=== PATIENT | female | born 1995 | race Caucasian/White ===

== ENCOUNTER 2022-04-21 05:57 | Inpatient (IN) ==
[2022-04-21] MEDS ORDERED: OXYTOCIN 30 UNITS/500 ML BAG IV PRN ×3 (07:34→16:33)
[2022-04-21] MEDS: LACTATED RINGER'S 1,000 ML IV PRN ×3 (08:05→15:41)
--- NOTE | 2022-04-21 09:08 | History & Physical Report ---
Date of Service April 21, 2022 Assessment & Plan (1) Encounter for supervision of normal intrauterine in primigravida, antepartum: Plan: Pt is a female at 38 3/7 gestation presenting to L&D for SROM.Pt has had routine OB care prior to admission. -Admit patient to L&D for supervision of labor, expect - monitoring category 1 -Rubella immune, GBS-, COVID vaccinated -COVID negative -Pitocin started for augmentation of labor -epidural prn for pain control -routine labs History of Present Illness Chief Complaint: labor check Primary Care Provider: Marleny Liz Patient is a 27-year-old female presenting to labor and delivery for supervision of labor at 38 and 3/7 weeks gestation. No reported complications of this . Patient reports experiencing a gush of fluid this morning at around 1:00 with noticeable cramping/contractions occur every 5 to 10 minutes. Reports good movement. Denies any bleeding from the vagina. Has had routine OB care through [facility]. Reports that she would like an epidural when able. Patient is COVID vaccinated with a Turkmen vaccine series as well as [employer]. Patient is GBS negative. Otherwise no additional complaints at this time. OB Labs: Blood Type B Positive 11/19/21 Antibody Screen NEGATIVE 11/19/21 Hemoglobin 11.9 g/dL (12.0-16.0) L 02/09/22 Hematocrit 34.5 % (37-47) L 02/09/22 Mean Corpuscular Volume 88.9 fL (80-100) 11/19/21 Platelet Count 232 K/uL (130-400) 11/19/21 Rubella IgG Antibody Immune (Immune) 11/19/21 Rapid Plasma Reagin Nonreactive (Nonreactive) 11/19/21 Hepatitis B Surface Antigen Neg (Neg) 11/19/21 HIV (1&2) Ab and P24 Ag, 4th Gener Neg (Neg) 11/19/21 Glucose 1 Hour 50 gm Load 123 mg/dl (70-130) 02/09/22 OB Optional Labs: Chlamydia trachomatis RNA NOT DETECTED (NOT DETECTED) 11/19/21 Neisseria gonorrhoeae RNA NOT DETECTED (NOT DETECTED) 11/19/21 Allergies Allergy/AdvReac Type Severity Reaction Status Date / Time No Known Allergies Allergy Verified 04/20/22 11:48 Home Medications Medication Instructions Recorded Confirmed Type vits,calcium 21-iron fum 1 tab PO DAILY #90 tab 03/22/22 04/21/22 Rx 14 mg iron-folic acid 400 mcg tablet ( Complete) Patient History Medical History (Updated 11/18/21 @ 13:57 by Ginger MENDOZA, MIRELLA) Abnormal Pap smear of cervix History of chicken pox PCOS (polycystic ovarian syndrome) Pilonidal abscess Surgical History (Updated 04/21/22 @ 06:12 by Katelyn Lamas RN) S/P biopsy of cervix [place] teeth removed Family History (Updated 11/18/21 @ 13:37 by Ginger MENDOZA, MIRELLA) Grandmother (Maternal) Asthma Grandfather (Maternal) Acute alcoholic hepatitis Father Hepatitis C Schizophrenia Denies family history of Ovarian cancer Prostate cancer Breast cancer Lung cancer Colorectal cancer Cancer Social History (Updated 11/18/21 @ 13:39 by Ginger MENDOZA RN) Smoking Status: Former smoker Age Started Using Tobacco: 12; Age Quit Using Tobacco: 13; Years Smoked: 1; Smoking End Date: age 12; Second Hand Exposure: No; Hx Alcohol Use: No Hx Substance Use: No Preferred Language: Turkmen Communication Ability: Effective Telecom Specialist Required: No Beliefs That Will Affect Care: None marital status: marital status details: ryan Jewell ([phone] Current Living Situation: Spouse Current Living Situation Comment: FOB. no pets. current occupational status: unemployed Other Information That Helps Us Care for You: No Feels Safe at Home: Yes Safety Concerns: Feels Safe At This Time Assistive Devices: None Review of Systems All systems reviewed & are unremarkable except as noted in HPI & below Physical Exam Constitutional: WD/WN, vitals as above Eyes: + anicteric sclerae Neck: trachea midline, no thyromegaly Respiratory: normal respiratory effort, lungs clear to auscultation Cardiovascular: RRR, no murmur, no edema Gastrointestinal (Abdomen): normal bowel sounds, soft, nontender, no hepatosplenomegaly Gravid Musculoskeletal: Head/Neck/Chest: normocephalic and head atraumatic Skin: no rashes, warm and dry Neurologic: moves all extremities Psychiatric: A+Ox3, euthymic affect Genitourinary: FHM: Category 1 Accelerations: present Decels: absent Variability: good Cervial Exam (per attending) Dilation: 1.5 Effacement: 80% Station: -1 Results & Data ([facility]) Vital Signs (Past 12 Hours) Vital Signs Temp Pulse Resp BP 04/21/22 08:29 36.8 C 20 04/21/22 06:14 36.7 C 57 L 20 104/65 04/21/22 06:09 57 L 104/65 04/21/22 06:07 36.7 C 20 Supervising Physician Co-Signing Physician Notes Resident Physician Supervision Note: I interviewed and examined the patient. Discussed with Dr. Rivera and agree with findings and plan as documented in the note. Any exceptions or clarifications are listed here: [None] Documented By: Flores Thomas MD, FACOG
[2022-04-21] MEDS ORDERED: ePHEDrine sulfate 50 MG/ML AMP ONE (10:30)
[2022-04-21] MEDS ORDERED: fentaNYL citrate 100 MCG/2 ML VIAL ONE (10:30)
[2022-04-21] MEDS ORDERED: BUPIVACAINE 0.25% 30 ML VIAL ONE (10:31)
[2022-04-21] MEDS ORDERED: fentaNYL 2MCG/ML ROPIVACAINE 1.25MG/ML 100 ML BAG EPI ONE (10:31)
[2022-04-21] MEDS ORDERED: SODIUM CHLORIDE 0.9% INJ 10 ML VIAL ONE (10:31)
[2022-04-21 10:45] LABS: Hematocrit (blood only) 34.3 % (37-47); Hemoglobin 11.8 g/dL (12.0-16.0); Mean Corpuscular Hemoglobin 30.3 pg (25-34); Mean Corpuscular Hgb Conc 34.4 g/dL (32-36); Mean Corpuscular Volume 88.2 fL (80-100); Mean Platelet Volume 12.9 fL (7.4-10.4); Platelet Count 143 K/uL (130-400); RDW Coefficient of Variation 12.2 % (11.5-14.5); Red Blood Count 3.89 M/uL (4.2-5.4)
[2022-04-21] MEDS ORDERED: fentaNYL 2MCG/ML ROPIVACAINE 1.25MG/ML 100 ML BAG EPI PRN (11:02)
[2022-04-21] MEDS ORDERED: ePHEDrine sulfate 50 MG/ML AMP IV PRN (11:02)
[2022-04-21] MEDS ORDERED: ONDANSETRON INJ 2 MG/ML 2 ML VIAL IV PRN (11:02)
[2022-04-21] MEDS ORDERED: NALOXONE HCL 0.4 MG/1 ML VIAL/CARP IV PRN (11:02)
[2022-04-21] MEDS ORDERED: NALOXONE HCL 1 MG in SODIUM CHLORIDE 0.9% 1000ML 1,000 ML IV PRN (11:02)
[2022-04-21] MEDS ORDERED: NALBUPHINE HCL INJ 10 MG/ML AMP IV PRN (11:02)
[2022-04-21] MEDS ORDERED: diphenhydrAMINE 50 MG/ML VIAL IV PRN (11:02)
--- NOTE | 2022-04-21 11:04 | Anesthesiology Consultation ---
Date of Service April 21, 2022 Assessment & Plan Chart Review Chart Review: Patient NOT seen in Pre Admission Testing and Acceptable Risk for Labor Epidural Consults Requested none ASA ASA2 Proposed Anesthesia Anesthesia Type: Labor Epidural and CSE Risk / Benefits Reviewed With: PT / POA / Parent / Guardian, Accepts Plan and Informed Consent Obtained History Height/Weight Weight: 63.957 kg Allergies Allergy/AdvReac Type Severity Reaction Status Date / Time No Known Allergies Allergy Verified 04/20/22 11:48 Medications Home Medications Medication Instructions Recorded Confirmed Last Taken vits,calcium 21-iron fum 1 tab PO DAILY #90 tab 03/22/22 04/21/22 04/21/22 01:00 14 mg iron-folic acid 400 mcg tablet ( Complete) Active Medications Generic Name Dose Route Start Last Admin Trade Name Freq PRN Reason Stop Dose Admin Oxytocin 30 units in 500 mls @ 5 mls/hr 04/21/22 07:34 04/21/22 09:30 Pitocin IV 04/23/22 07:33 0.3 units/hr .Q24H PRN 5 mls/hr Labor Induction/Augmentation Titration Protocol 0.3 UNITS/HR NPO Date Last Intake of Fluids: 04/21/22 Time Last Intake of Fluids: 10:00 Date Last Intake of Solids: 04/20/22 Time Last Intake of Solids: 20:00 Past Medical History Medical History Abnormal Pap smear of cervix History of chicken pox PCOS (polycystic ovarian syndrome) Pilonidal abscess Exercise / Class Metabolic Activity II 4-5 Yardwork/Stairs/Walk up hill Past Family History Family History Grandmother (Maternal) Asthma Grandfather (Maternal) Acute alcoholic hepatitis Father Hepatitis C Schizophrenia Denies family history of Ovarian cancer Prostate cancer Breast cancer Lung cancer Colorectal cancer Cancer Past Surgical History Surgical History S/P biopsy of cervix [place] teeth removed Past Anesthesia History No Hx of Anesthesia Complications and No Family Hx of Anesthesia Complications History of PONV No Hx of PONV and No Hx of Motion Sickness Social History Smoking Status: Former smoker Smoking End Date: age 12 Hx Alcohol Use: No Hx Substance Use: No Review of Systems no chest pain or sob Physical Exam Vital Signs Last Vital Signs Temp 36.8 C 04/21/22 08:29 Pulse 95 H 04/21/22 10:58 Resp 20 04/21/22 08:29 BP 98/57 L 04/21/22 09:27 Pulse Ox 99 04/21/22 10:58 ENMT Mouth: no TMJ abnormality Thyromental Distance: > or= 3.5 Finger Breadths Mallampati Class: II Neck normal visual inspection Respiratory normal respiratory effort Auscultation: lungs clear to auscultation bilaterally Cardiovascular Rate/Rhythm: regular rate and regular rhythm Musculoskeletal Spine: normal cervical ROM Neurologic moves all extremities Psychiatric Orientation: alert and oriented x 3 Testing Laboratory Results 04/21/22 10:12
[2022-04-21] MEDS ORDERED: BENZOCAINE 20% AER SPR 82.5 GM CAN EXT PRN (16:33)
[2022-04-21] MEDS ORDERED: oxyCODONE/ACETAMINOPHEN 5mg/325mg TAB PO PRN (16:33)
[2022-04-21] MEDS ORDERED: HYDROCORTISONE ACETATE 25 MG SUPP PR PRN (16:33)
[2022-04-21] MEDS ORDERED: bisacodyL 10 MG SUPP PR PRN (16:33)
[2022-04-21] MEDS ORDERED: DIPHTHERIA/TETANUS/PERTUSSIS 0.5 ML SYR/VIAL IM ONE (16:33)
--- NOTE | 2022-04-21 17:52 | Anesthesia Procedure Note ---
Date of Service April 21, 2022 Anesthesia Post Epidural Note Vital Signs Vital Signs: Temp Pulse Resp BP Pulse Ox 36.7 C 83 18 102/64 98 04/21/22 15:28 04/21/22 17:47 04/21/22 15:28 04/21/22 17:47 04/21/22 16:13 Notes Mental Status: alert / awake / arousable and participated in evaluation Nausea / Vomiting: adequately controlled Pain: adequately controlled Airway Patency, RR, SpO2: stable & adequate BP & HR: stable & adequate Hydration State: stable & adequate Neuraxial Anesthesia: was administered and sensory block is resolving Anesthetic Complications: no major complications apparent Epidural: Removed without complications and With tip intact
--- NOTE | 2022-04-21 18:31 | Delivery Summary ---
Vaginal Delivery Summary Date of Service April 21, 2022 Vaginal Delivery Summary and 1st Degree LAC (left labial) The patient is a 27-year-old G1, P0 female who presented with spontaneous rupture membranes then required Pitocin augmentation. She requested epidural analgesia which was effective. She progressed to full dilation with the urge to push. She pushed effectively over intact perineum for delivery of a viable male infant. The was placed on the mother's abdomen for further attention and drying. He was vigorous and crying. After 1 minute the cord was clamped and cut. The placenta was then expressed intact with a three-vessel cord. bleeding was controlled with fundal massage and dilute Pitocin. A first-degree left labial laceration was bleeding and repaired with 3-0 chromic in the usual fashion. Estimated blood loss was 200 cc. She was straight cathed using sterile technique for a small amount of concentrated urine after delivery. Mother and were doing well . [facility] Vaginal Delivery Charge Delivery Type Details: and 1st Degree LAC (left labial)
[2022-04-21] MEDS: DOCUSATE SODIUM 100 MG CAP PO SCH (21:35)
[2022-04-21] MEDS: IBUPROFEN 600 MG TAB PO PRN (22:50)
[2022-04-22] MEDS: IBUPROFEN 600 MG TAB PO PRN ×5 (04:15→21:01)
--- NOTE | 2022-04-22 06:01 | Obstetrical Progress Note ---
Date of Service April 22, 2022 Assessment & Plan (1) Encounter for care and examination after delivery: Plan: Patient is a 27-year-old status postnormal spontaneous vaginal delivery day 1. -Continue routine care -B+, antibody negative, rubella immune, GBS negative -Encourage breast-feeding -Encouraged ambulation -Tylenol and ibuprofen as needed for pain control -Follow-up OB appointment in [address] Mattson Admission and Anticipated Discharge Date Admission Date: April 21, 2022 Supervising Physician Co-Signing Physician Notes Resident Physician Supervision Note: I interviewed and examined the patient. Discussed with Dr. Rivera and agree with findings and plan as documented in the note. Any exceptions or clarifications are listed here: [None] Documented By: Flores Thomas MD, FACOG Subjective Patient is a 27-year-old now female status post day 1 who delivered at 38 and 3/7 weeks gestation. Patient doing well today. Patient reports that her pain is about a 1 out of 10 after utilizing pain medication. Eating and drinking without difficulty. Ambulating around the room and urinating well. Patient is passing gas and did have a bowel movement overnight. Patient is breast-feeding without difficulty albeit her milk production seems to have not come in yet. Otherwise has no complaints at this time. Feels well. Review of Systems Review of Systems: All systems reviewed & are unremarkable except as noted in HPI & below Physical Exam Constitutional: WD/WN, vitals as above Eyes: + anicteric sclerae Neck: trachea midline, no thyromegaly Respiratory: normal respiratory effort, lungs clear to auscultation Cardiovascular: RRR, no murmur, no edema Gastrointestinal (Abdomen): normal bowel sounds, soft, nontender, no hepatosplenomegaly Musculoskeletal: Head/Neck/Chest: normocephalic and head atraumatic Skin: no rashes, warm and dry Neurologic: moves all extremities Psychiatric: A+Ox3, euthymic affect Genitourinary: Uterus palpated at the level of the umbilicus, firm Results & Data ([facility]) Vital Signs (Past 12 Hours) Vital Signs Temp Pulse Pulse Resp BP BP Pulse Ox 04/22/22 03:15 37.0 C 72 18 102/67 97 04/21/22 23:50 36.8 C 59 L 20 104/65 97 04/21/22 19:50 36.8 C 72 20 98/62 L 97 04/21/22 18:47 75 98/53 L 04/21/22 18:32 78 93/52 L 04/21/22 18:17 78 96/51 L 04/21/22 18:02 75 102/59 L
[2022-04-22 06:16] LABS: Mean Corpuscular Hgb Conc 35.1 g/dL (32-36)
[2022-04-22 06:44] LABS: Hematocrit (blood only) 31.9 % (37-47); Hemoglobin 11.2 g/dL (12.0-16.0); Mean Corpuscular Hemoglobin 31.4 pg (25-34); Mean Corpuscular Volume 89.4 fL (80-100); Mean Platelet Volume 12.6 fL (7.4-10.4); Platelet Count 127 K/uL (130-400); Platelet Estimate Decreased (Normal); RDW Coefficient of Variation 12.1 % (11.5-14.5); RDW Standard Deviation 39.2 fL (36.4-46.3); Red Blood Count 3.57 M/uL (4.2-5.4); White Blood Count 15.25 K/uL (4.8-10.8)
[2022-04-22] MEDS: DOCUSATE SODIUM 100 MG CAP PO SCH ×2 (08:38→20:05)
[2022-04-22] MEDS: PRENATAL VITAMIN 1 TAB PO SCH (08:38)
[2022-04-22] MEDS ORDERED: [UNRECOGNIZED DRUG - OTHER] PO SCH (09:00)
[2022-04-22] MEDS ORDERED: IRON PO SCH (09:00)
[2022-04-22] MEDS ORDERED: bisacodyL 5 MG TABEC PO SCH (20:00)
[2022-04-22] MEDS: ACETAMINOPHEN 325 MG TAB PO PRN (20:04)
[2022-04-23] MEDS: IBUPROFEN 600 MG TAB PO PRN ×3 (01:23→14:02)
[2022-04-23] MEDS: ACETAMINOPHEN 325 MG TAB PO PRN ×2 (04:49→11:19)
--- NOTE | 2022-04-23 05:57 | Obstetrical Progress Note ---
Date of Service April 23, 2022 Assessment & Plan (1) Encounter for care and examination after delivery: Plan: Patient is a 27-year-old status postnormal spontaneous vaginal delivery day 2. -Continue routine care, D/C today, discharge instructions reviewed with patient -B+, antibody negative, rubella immune, GBS negative -Encourage breast-feeding -Encouraged ambulation -Tylenol and ibuprofen as needed for pain control -Follow-up OB appointment in [address] Mattson Admission and Anticipated Discharge Date Admission Date: April 21, 2022 Supervising Physician Co-Signing Physician Notes Resident Physician Supervision Note: I interviewed and examined the patient. Discussed with Dr. Rivera and agree with findings and plan as documented in the note. Any exceptions or clarifications are listed here: PPD#2 doing well. Desires discharge home. Instructions reviewed, followup in office 6w. Documented By: Kelley Warren, DO Subjective Patient is a 27-year-old now female status post day 2 who delivered at 38 and 3/7 weeks gestation. Patient doing well today. Patient reports that her pain is about a 2 out of 10 after utilizing pain medication. Eating and drinking without difficulty. Ambulating around the room and urinating well. Patient is passing gas and did have a bowel movement overnight. Patient is breast-feeding without difficulty. Lochia mild. Otherwise has no complaints at this time. Feels well and wishes to go home. Review of Systems Review of Systems: All systems reviewed & are unremarkable except as noted in HPI & below Physical Exam Constitutional: WD/WN, vitals as above Eyes: + anicteric sclerae Neck: trachea midline, no thyromegaly Respiratory: normal respiratory effort, lungs clear to auscultation Cardiovascular: RRR, no murmur, no edema Gastrointestinal (Abdomen): normal bowel sounds, soft, nontender, no hepatosplenomegaly Musculoskeletal: Head/Neck/Chest: normocephalic and head atraumatic Skin: no rashes, warm and dry Neurologic: moves all extremities Psychiatric: A+Ox3, euthymic affect Genitourinary: Uterus palpated at 2 cm below the umbilicus Results & Data ([facility]) Vital Signs (Past 12 Hours) Vital Signs Temp Pulse Resp BP Pulse Ox 04/22/22 22:56 36.9 C 63 18 95/56 L 98 06/23/22 19:45 37.1 C 74 18 106/72 97
[2022-04-23] MEDS: DOCUSATE SODIUM 100 MG CAP PO SCH (07:31)
[2022-04-23] MEDS: PRENATAL VITAMIN 1 TAB PO SCH (07:31)
== END 2022-04-23 15:15 | disposition home or self-care (01) | DRG 807 ==
LOC: OPB 05:57 → 4S1 06:02 → 4E2 19:14